=== PATIENT | female | born 1955 | race Caucasian/White ===

== ENCOUNTER 2016-10-22 10:26 | Outpatient (CLI) | payer BC | END 2016-10-22 16:00 | disposition home or self-care (01) | LOC: SMA 10:26 | PROVIDERS: ATTEND Family Medicine | DX: Z12.31 Encounter for screening mammogram for malignant neoplasm of breast (principal) | CPT/HCPCS: G0202 ==

== ENCOUNTER 2016-11-11 15:12 | Emergency (ER) | payer BC ==
[~2016-11-11] VITALS: Ht 160 cm; Wt 71.7 kg
[2016-11-11 15:33] VITALS: BP 151/87; PULSE 98; RESP 20; TEMP 98.4; O2SAT 96
--- NOTE | 2016-11-11 15:39 | NUR ---
Pt placed to ER bed 6.
--- NOTE | 2016-11-11 15:45 | NUR ---
IRENE IQBAL AT BEDSIDE EXAMINING PT.
--- NOTE | 2016-11-11 15:53 | NUR ---
URINE SAMPLE COLLECTED AND SENT TO LAB.
[2016-11-11] MEDS ORDERED: NACL 0.9% 1,000 ML IV ONE (16:00)
[2016-11-11] MEDS ORDERED: ONDANSETRON HCL 4 MG/2 ML VIAL IVP ONE (16:00)
[2016-11-11] MEDS ORDERED: KETOROLAC TROMETHAMINE 30 MG VIAL IVP ONE (16:00)
[2016-11-11 16:02] LABS: BILIRUBIN,URINE NEGATIVE (NEGATIVE); CLARITY/URINE SL CLOUDY (CLEAR); COLOR,URINE ORANGE (YELLOW); LEUKOCYTE ESTERASE ,URINE 2+ (NEGATIVE); NITRITE, URINE POSITIVE (NEGATIVE); PROTEIN URINE 3+ (NEGATIVE)
[2016-11-11 16:14] LABS: BLOOD, URINE TRACE (NEGATIVE); GLUCOSE,URINE NEGATIVE (NEGATIVE); KETONES,URINE NEGATIVE (NEGATIVE); UROBILINOGEN,URINE >=8 (0.2-1.0)
--- NOTE | 2016-11-11 16:19 | NUR ---
# 20 gauge angiocath placed to LEFT A/C. Use of aseptic technique. Opsite placed over site. Blood return noted. Flushed with 10 cc of normal saline. No evidence of infiltration noted. Patient tolerated well.
--- NOTE | 2016-11-11 16:21 | NUR ---
MEDICATED WITH TORADOL 30 MG IVP FOR BLADDER PAIN.
[2016-11-11 16:25] LABS: HEMATOCRIT 44.7 % (36-48); HEMOGLOBIN 15.1 g/dL (12.0-16.0); MEAN CORPUSCULAR HEMOGLOBIN 29 pg (27-31); MEAN CORPUSCULAR HGB CONC 34 % (32-36); MEAN CORPUSCULAR VOLUME 86 fL (79.0-98.0); PLATELET COUNT (AUTO) 247 K/uL (130-430); RED BLOOD CELL COUNT(AUTO) 5.18 MIL/uL (4.2-6.2); RED CELL DISTRIBUTION WIDTH 11.9 % (9.0-15.0); WHITE BLOOD COUNT (AUTO) 7.1 K/uL (4.8-10.8)
--- NOTE | 2016-11-11 16:31 | NUR ---
TAKEN TO RADIOLOGY DEPT VIA WHEELCHAIR.
[2016-11-11 16:35] LABS: CALCIUM 9.2 mg/dL (8.4-11.0); CREATININE 0.8 mg/dL (0.55-1.30); POTASSIUM 3.6 mmol/L (3.5-5.1)
[2016-11-11 16:39] LABS: BACTERIA,URINE FEW /HPF (None Seen); CALCIUM OXALATE CRYSTALS,UR 0-10 /HPF (None Seen); MUCUS,URINE 3+ /LPF (None Seen)
--- NOTE | 2016-11-11 16:39 | NUR ---
RETURNED TO ROOM 6.
[2016-11-11 16:40] LABS: ALBUMIN 3.7 g/dL (3.4-4.8); TOTAL BILIRUBIN 0.3 mg/dL (0.0-1.0); TOTAL PROTEIN, SERUM 7.5 g/dL (6.4-8.3)
[2016-11-11] MEDS ORDERED: cefTRIAXone 1 GM IVPB PREMIX 50 ML IV ONE (16:45)
--- NOTE | 2016-11-11 16:50 | NUR ---
TORADOL EFFECTIVE PER PT.
[2016-11-11 17:15] LABS: ATYPICAL LYMPHOCYTES % 0 % (0-0); BAND % (MANUAL) 6 % (0-6); BASOPHILS % (MANUAL) 0 % (0-2); EOSINOPHILS % (MANUAL) 6 % (0-7); LYMPHOCYTES % (MANUAL) 15 % (20-46); MONOCYTES % (MANUAL) 2 % (0-11)
--- NOTE | 2016-11-11 18:30 | NUR ---
Patient given written and verbal discharge instructions and verbalizes understanding. ARI WINSTON NP discussed with patient the results and treatment provided. Patient in stable condition. ID arm band removed. IV catheter removed intact and dressing applied, no active bleeding. Rx of MOBIC, PYRIDIUM, AND CIPRO given. Patient educated on pain management and to follow up with PMD. Pain Scale 0. Opportunity for questions provided and answered.
[2016-11-11 18:31] VITALS: RESP 18; O2SAT 99
== END 2016-11-11 18:31 | disposition home or self-care (01) ==
LOC: SED 15:12
DX: N39.0 Urinary tract infection, site not specified (principal); R73.9 Hyperglycemia, unspecified; I10 Essential (primary) hypertension; Z90.710 Acquired absence of both cervix and uterus
CPT/HCPCS: 36415; 74176; 80053; 81000; 83605; 85007; 85027; 87040; 87086; 96365; 96375; 99285; J0696; J1885; J2405; J7030

== ENCOUNTER 2016-12-22 15:18 | Emergency (ER) | payer BC ==
[~2016-12-22] VITALS: Ht 160 cm; Wt 71.2 kg
[2016-12-22 15:26] VITALS: BP_SYST 164
[2016-12-22 16:26] LABS: BASOPHILS % (AUTO) 0.5 % (0.0-2.0); EOSINOPHILS # (AUTO) 0.3 K/uL (0.0-0.4); EOSINOPHILS % (AUTO) 3.2 % (0.0-4.0); HEMATOCRIT 43.5 % (36-48); HEMOGLOBIN 14.8 g/dL (12.0-16.0); LYMPHOCYTES # (AUTO) 1.9 K/uL (1.0-5.5); LYMPHOCYTES % (AUTO) 22.2 % (20.5-51.5); MEAN CORPUSCULAR HEMOGLOBIN 29 pg (27-31); MEAN CORPUSCULAR HGB CONC 34 % (32-36); MEAN CORPUSCULAR VOLUME 86 fL (79.0-98.0); MONOCYTES # (AUTO) 0.6 K/uL (0.0-1.0); MONOCYTES % (AUTO) 7.5 % (1.7-9.3); NEUTROPHILS # (AUTO) 5.6 K/uL (1.8-7.7); NEUTROPHILS % (AUTO) 66.6 % (40.0-70.0); PLATELET COUNT (AUTO) 291 K/uL (130-430); RED BLOOD CELL COUNT(AUTO) 5.06 MIL/uL (4.2-6.2); WHITE BLOOD COUNT (AUTO) 8.4 K/uL (4.8-10.8)
[2016-12-22 16:35] LABS: BILIRUBIN,URINE NEGATIVE (NEGATIVE); CLARITY/URINE HAZY (CLEAR); COLOR,URINE YELLOW (YELLOW); GLUCOSE,URINE NEGATIVE (NEGATIVE); KETONES,URINE NEGATIVE (NEGATIVE); LEUKOCYTE ESTERASE ,URINE 1+ (NEGATIVE); NITRITE, URINE NEGATIVE (NEGATIVE); PROTEIN URINE TRACE (NEGATIVE); UROBILINOGEN,URINE 0.2 (0.2-1.0)
[2016-12-22 16:40] LABS: CALCIUM 8.6 mg/dL (8.4-11.0); CREATININE 0.66 mg/dL (0.55-1.30); POTASSIUM 3.3 mmol/L (3.5-5.1)
[2016-12-22 16:45] LABS: ALBUMIN 3.6 g/dL (3.4-4.8); TOTAL BILIRUBIN 0.3 mg/dL (0.0-1.0); TOTAL PROTEIN, SERUM 7.8 g/dL (6.4-8.3)
[2016-12-22 17:03] LABS: BLOOD, URINE TRACE (NEGATIVE)
[2016-12-22 17:13] LABS: BACTERIA,URINE FEW /HPF (None Seen); WBC,URINE 20-50 /HPF (0-3)
[2016-12-22 17:14] LABS: MUCUS,URINE 1+ /LPF (None Seen)
[2016-12-22] MEDS ORDERED: KETOROLAC TROMETHAMINE 60 MG/2 ML VIAL IM ONE (20:00)
[2016-12-22] MEDS ORDERED: IOHEXOL 100 ML IV ONE (22:06)
[2016-12-22] MEDS ORDERED: cefTRIAXone 1 GM in D5W 50 ML IV ONE (23:00)
[2016-12-22] MEDS ORDERED: AMLO5TAB4 PO (23:08)
[2016-12-22] MEDS ORDERED: cefTRIAXone 1 GM VIAL ONE (23:49)
[2016-12-23 00:39] VITALS: BP_SYST 164
== END 2016-12-23 00:39 | disposition left against medical advice (07) ==
LOC: SED 15:18 → STU 12-23 00:27 → UNDOADMIN 12-23 00:27 → STU 12-23 00:39 → UNDODISIN 12-23 00:39
DX: N39.0 Urinary tract infection, site not specified (principal); R19.09 Other intra-abdominal and pelvic swelling, mass and lump; I10 Essential (primary) hypertension; Z90.710 Acquired absence of both cervix and uterus; Z53.21 Procedure and treatment not carried out due to patient leaving prior to being seen by health care provider; R19.07 Generalized intra-abdominal and pelvic swelling, mass and lump
CPT/HCPCS: 36415; 74177; 76705; 80053; 81000; 83690; 85025; 87040; 87086; 96365; 96372; 99285; J0696; J1885; J7060; Q9967

== ENCOUNTER 2017-12-31 14:56 | Outpatient (CLI) | payer BC ==
[~2017-12-31 14:56] MED LIST: AMLO5TAB4 PO
== END 2017-12-31 21:05 | disposition home or self-care (01) ==
LOC: SMA 14:56
PROVIDERS: ATTEND Family Medicine
DX: Z12.31 Encounter for screening mammogram for malignant neoplasm of breast (principal)
CPT/HCPCS: 77067

== ENCOUNTER 2020-02-16 09:57 | Outpatient (CLI) | payer BC | END 2020-02-16 21:06 | disposition home or self-care (01) | LOC: SMA 09:57 | PROVIDERS: ATTEND Family Medicine | DX: Z12.31 Encounter for screening mammogram for malignant neoplasm of breast (principal) | CPT/HCPCS: 77067 ==

== ENCOUNTER 2020-02-25 09:44 | Emergency (ER) | payer BC, SELFPAY ==
[~2020-02-25] VITALS: Ht 160 cm; Wt 67.1 kg
[2020-02-25 09:47] VITALS: BP_SYST 150
[2020-02-25] MEDS ORDERED: GLUXR500 PO (10:27)
[2020-02-25] MEDS ORDERED: GLU500 PO (10:28)
[2020-02-25 11:04] LABS: CALCIUM 8.6 mg/dL (8.4-11.0); CREATININE 0.73 mg/dL (0.55-1.30); POTASSIUM 3.3 mmol/L (3.5-5.1)
[2020-02-25 11:06] LABS: BASOPHILS % (AUTO) 1.1 % (0.0-2.0); LYMPHOCYTES # (AUTO) 0.5 K/uL (1.0-5.5); LYMPHOCYTES % (AUTO) 22.7 % (20.5-51.5); MEAN CORPUSCULAR HEMOGLOBIN 28 pg (27-31); MEAN CORPUSCULAR HGB CONC 32 % (32-36); MEAN CORPUSCULAR VOLUME 87 fL (79.0-98.0); MONOCYTES # (AUTO) 0.3 K/uL (0.0-1.0); MONOCYTES % (AUTO) 16.3 % (1.7-9.3); NEUTROPHILS # (AUTO) 1.2 K/uL (1.8-7.7); PLATELET COUNT (AUTO) 157 K/uL (130-430); RED BLOOD CELL COUNT(AUTO) 2.51 MIL/uL (4.2-6.2); RED CELL DISTRIBUTION WIDTH 25.2 % (9.0-15.0); WHITE BLOOD COUNT (AUTO) 2.1 K/uL (4.8-10.8)
[2020-02-25 11:11] LABS: ALBUMIN 2.9 g/dL (3.4-4.8); HEMATOCRIT 21.9 % (36-48); PROTHROMBIN TIME 9.9 SECS (9.5-12.5); TOTAL BILIRUBIN 0.5 mg/dL (0.0-1.0)
[2020-02-25] MEDS ORDERED: POTASSIUM CHLORIDE 20 MEQ TAB.PRT.SR PO ONE (11:30)
[2020-02-25 11:33] VITALS: BP_SYST 143
[2020-02-25 12:02] LABS: NEUTROPHILS % (AUTO) 57.9 % (40.0-70.0)
== END 2020-02-25 11:35 | disposition home or self-care (01) ==
LOC: SED 09:44
DX: D64.9 Anemia, unspecified (principal); I10 Essential (primary) hypertension; Z90.710 Acquired absence of both cervix and uterus; Z20.828 Contact with and (suspected) exposure to other viral communicable diseases
CPT/HCPCS: 36415; 80053; 83880; 84484; 85025; 85610-TC; 86710; 93005; 99284

== ENCOUNTER 2021-03-08 11:24 | Outpatient (CLI) | payer BC, SELFPAY ==
[~2021-03-08 11:24] MED LIST changes: +GLU500 PO
== END 2021-03-09 16:41 | disposition home or self-care (01) ==
LOC: SMA 11:24
PROVIDERS: ATTEND Family Medicine
DX: Z12.31 Encounter for screening mammogram for malignant neoplasm of breast (principal)
CPT/HCPCS: 77067

== ENCOUNTER 2021-07-05 14:39 | Emergency (ER) | payer BC, SELFPAY ==
[~2021-07-05] VITALS: Ht 157.5 cm; Wt 60.8 kg
[2021-07-05 15:00] VITALS: BP_SYST 152
[2021-07-05 16:37] LABS: INR 0.9 (0.8-1.2); PROTHROMBIN TIME 9.7 SECS (9.5-12.5)
[2021-07-05 16:38] LABS: EOSINOPHILS # (AUTO) 0.1 K/uL (0.0-0.4); EOSINOPHILS % (AUTO) 1.8 % (0.0-4.0); LYMPHOCYTES # (AUTO) 0.4 K/uL (1.0-5.5); LYMPHOCYTES % (AUTO) 8.9 % (20.5-51.5); MEAN CORPUSCULAR HEMOGLOBIN 27 pg (27-31); MEAN CORPUSCULAR HGB CONC 31 % (32-36); MEAN CORPUSCULAR VOLUME 85 fL (79.0-98.0); MONOCYTES # (AUTO) 0.3 K/uL (0.0-1.0); MONOCYTES % (AUTO) 6.2 % (1.7-9.3); NEUTROPHILS # (AUTO) 3.5 K/uL (1.8-7.7); NEUTROPHILS % (AUTO) 82.1 % (40.0-70.0); PLATELET COUNT (AUTO) 188 K/uL (130-430); RED BLOOD CELL COUNT(AUTO) 2.27 MIL/uL (4.2-6.2); RED CELL DISTRIBUTION WIDTH 17.8 % (9.0-15.0); WHITE BLOOD COUNT (AUTO) 4.2 K/uL (4.8-10.8)
[2021-07-05 16:51] LABS: HEMATOCRIT 19.4 % (36-48); HEMOGLOBIN 6.1 g/dL (12.0-16.0)
[2021-07-05 23:27] VITALS: BP_SYST 154
== END 2021-07-05 23:27 | disposition home or self-care (01) ==
LOC: SED 14:39
DX: D63.0 Anemia in neoplastic disease (principal); I10 Essential (primary) hypertension
CPT/HCPCS: 36415; 36430; 85025; 85610; 86886; 86900; 86901; 86920; 99285; P9021